=== PATIENT | male | born 1935 | race Caucasian/White ===

== ENCOUNTER 2021-08-22 04:29 | Day surgery (SDC) | payer OTHER ==
[2021-08-21 15:42] VITALS: BMI 26.2
[2021-08-22] MEDS ORDERED: HEPARIN NA (PORCINE) 5,000 UNITS/ML 1ML VIAL ONE (08:48)
[2021-08-22] MEDS ORDERED: ceFAZolin SODIUM 1 GM VIAL IVPB ONE ×2 (10:13→11:00)
[2021-08-22] MEDS ORDERED: LIDOCAINE HCL 1%, 10 MG/ML (20ML VIAL) NR ONE ×2 (10:14→11:06)
[2021-08-22] MEDS ORDERED: DEXMEDETOMIDINE HCL 200 MCG/2 ML IVPB ONE (10:34)
[2021-08-22] MEDS ORDERED: PROPOFOL 20 ML ONE (10:37)
[2021-08-22] MEDS ORDERED: ONDANSETRON 4 MG/2 ML VIAL ONE (10:37)
[2021-08-22] MEDS ORDERED: LIDOCAINE HCL/PF 2% SDV 5ML VIAL ONE (10:37)
[2021-08-22] MEDS ORDERED: ceFAZolin SODIUM 1 GM VIAL ONE (10:37)
[2021-08-22] MEDS ORDERED: MIDAZOLAM HCL 2 MG/2 ML SINGLE DOSE VIAL ONE (10:47)
[2021-08-22] MEDS ORDERED: ACETAMINOPHEN 325 MG TABLET (FP) PO PRN (12:15)
[2021-08-22] MEDS ORDERED: ONDANSETRON 4 MG/2 ML VIAL IVPUSH PRN (12:15)
[2021-08-22] MEDS ORDERED: LACTATED RINGERS SOLUTION 1,000 ML IV SCH (12:15)
[2021-08-22 15:53] VITALS: BP 118/63; PULSE 57
[2021-08-22 16:32] VITALS: TEMP 97
== END 2021-08-22 16:00 | disposition home or self-care (01) ==
LOC: JASU-SURG 04:29
PROVIDERS: ATTEND Surgery Vascular Surgery
PROC: 047L3D1 Dilation of Left Femoral Artery with Intraluminal Device, using Drug-Coated Balloon, Percutaneous Approach (ICD-10-PCS; principal; 2021-08-22 10:30)
DX: L97.929 Non-pressure chronic ulcer of unspecified part of left lower leg with unspecified severity (principal); I70.202 Unspecified atherosclerosis of native arteries of extremities, left leg; I12.9 Hypertensive chronic kidney disease with stage 1 through stage 4 chronic kidney disease, or unspecified chronic kidney disease; E11.22 Type 2 diabetes mellitus with diabetic chronic kidney disease; N18.9 Chronic kidney disease, unspecified
CPT/HCPCS: 37227; C1877; 76000-TC-FY; 93005; 93010; 94760; J1644

== ENCOUNTER 2021-11-06 14:00 | Inpatient (IN) | payer OTHER ==
[2021-11-06 15:31] LABS: BASO % 0.2 % (0-2.0); EOS % 1.6 % (0-4.5); HEMOGLOBIN 11.6 GM/dL (11.7-16.9); LYMPH % 16.7 % (8-40); MCH 29.1 pg (25.7-33.7); MCHC 33.1 g/dl (32.0-35.9); MEAN PLT VOLUME 9.1 fl (7.5-11.1); MONO % 9.5 % (3.8-10.2); PLATELET COUNT 179 10^3/uL (134-434); RBC 3.98 M/mm3 (4.00-5.60); RDW 13.4 % (11.9-15.9); WHITE BLOOD COUNT 11.6 K/mm3 (4.0-10.0)
[2021-11-06 15:38] LABS: INR 1.23 (0.83-1.09); PROTHROMBIN TIME (PATIENT) 13.8 SEC (9.7-13.0)
[2021-11-06 15:40] LABS: ACTIVATED PTT 29.4 SECONDS (25.2-36.5)
[2021-11-06 16:40] LABS: BLOOD UREA NITROGEN 40.8 mg/dL (7-18); CALCIUM 9.2 mg/dL (8.5-10.1)
[2021-11-06 16:45] LABS: BILIRUBIN,TOTAL 0.6 mg/dL (0.2-1); TOT PROT 7.3 g/dl (6.4-8.2)
[2021-11-06] MEDS ORDERED: PIPERACILLIN/TAZOB 3.375 GM 3.375 GM in DEXTROSE 5%-WATER - 50 ML IVPB ONE (17:18)
[2021-11-06] MEDS ORDERED: PIPERACILLIN/TAZOB 2.25 GM 2.25 GM in DEXTROSE 5%-WATER - 50 ML IVPB ONE (17:20)
[2021-11-06] MEDS ORDERED: QUEtiapine FUMARATE 50 MG TABLET PO ONE (18:04)
[2021-11-06] MEDS ORDERED: PIPERACILLIN/TAZOB 2.25 GM 2.25 GM/50 ML BAG IVPB ONE (18:09)
[2021-11-06] MEDS ORDERED: QUEtiapine FUMARATE 25 MG TABLET ONE ×2 (18:09→18:18)
[2021-11-06] MEDS ORDERED: HALOPERIDOL LACTATE 5 MG/ML IM ONE ×2 (18:35→19:03)
[2021-11-06] MEDS ORDERED: HALOPERIDOL LACTATE 5 MG/ML ONE ×2 (18:38→19:06)
[2021-11-06] MEDS ORDERED: LORazepam 2 MG/ML SDV VIAL IM ONE (19:03)
[2021-11-06] MEDS ORDERED: LORazepam 2 MG/ML SDV VIAL ONE (19:07)
[2021-11-06] MEDS ORDERED: FUROSEMIDE 40 MG TABLET (FP) ONE (20:35)
[2021-11-06] MEDS ORDERED: CLOPIDOGREL BISULFATE 75 MG TABLET (FP) ONE (20:35)
[2021-11-06] MEDS ORDERED: HEPARIN NA (PORCINE) 5,000 UNITS/ML 1ML VIAL ONE (20:36)
[2021-11-06] MEDS: FUROSEMIDE 40 MG TABLET (FP) PO SCH (20:45)
[2021-11-06] MEDS: HEPARIN NA (PORCINE) 5,000 UNITS/ML 1ML VIAL SQ SCH (20:45)
[2021-11-06] MEDS: CLOPIDOGREL BISULFATE 75 MG TABLET (FP) PO SCH (20:46)
[2021-11-06] MEDS: SODIUM CHLORIDE 1,000 ML IV SCH (22:13)
[2021-11-06] MEDS ORDERED: FUROSEMIDE 40 MG/4 ML INJECTABLE VIAL IVPUSH ONE (22:56)
[2021-11-06] MEDS ORDERED: METOPROLOL TARTRATE 5 MG/5 ML VIAL IVPUSH ONE (22:57)
[2021-11-06] MEDS ORDERED: METOPROLOL TARTRATE 5 MG/5 ML VIAL ONE (23:08)
[2021-11-06] MEDS ORDERED: FUROSEMIDE 40 MG/4 ML INJECTABLE VIAL ONE (23:08)
[2021-11-06] MEDS: CARVEDILOL 25 MG TABLET (FP) PO SCH (23:09)
[2021-11-06] MEDS: amLODIPine BESYLATE 5 MG TABLET (FP) PO SCH (23:09)
[2021-11-07 02:17] VITALS: BMI 23.4
[2021-11-07] MEDS ORDERED: PIPERACILLIN/TAZOBACTAM 2.25 GM VIAL IVPB ONE ×3 (03:03→17:38)
[2021-11-07] MEDS ORDERED: DEXTROSE 5%-WATER - 50 ML IVPB ONE ×3 (03:04→17:38)
[2021-11-07] MEDS: PIPERACILLIN/TAZOB 2.25 GM 2.25 GM in DEXTROSE 5%-WATER - 50 ML IVPB SCH ×5 (03:41→18:04)
[2021-11-07] MEDS: HEPARIN NA (PORCINE) 5,000 UNITS/ML 1ML VIAL SQ SCH ×3 (06:04→21:30)
[2021-11-07 08:58] LABS: BASO % 0.2 % (0-2.0); EOS % 1.8 % (0-4.5); HEMATOCRIT 33.8 % (35.4-49); HEMOGLOBIN 11.3 GM/dL (11.7-16.9); LYMPH % 18.5 % (8-40); MCH 29.5 pg (25.7-33.7); MCHC 33.5 g/dl (32.0-35.9); MEAN PLT VOLUME 9.6 fl (7.5-11.1); MONO % 7.8 % (3.8-10.2); NEUT % 71.7 % (42.8-82.8); PLATELET COUNT 187 10^3/uL (134-434); RBC 3.84 M/mm3 (4.00-5.60); RDW 13.5 % (11.9-15.9); WHITE BLOOD COUNT 11.5 K/mm3 (4.0-10.0)
[2021-11-07 09:13] LABS: CALCIUM 9.3 mg/dL (8.5-10.1)
[2021-11-07 09:14] LABS: ALBUMIN 2.7 g/dl (3.4-5.0); BLOOD UREA NITROGEN 37.6 mg/dL (7-18); MAGNESIUM 2.4 mg/dL (1.8-2.4)
[2021-11-07 09:17] LABS: CREATININE 1.8 mg/dL (0.55-1.3); PHOSPHOROUS 2.9 mg/dL (2.5-4.9)
[2021-11-07 09:18] LABS: BILIRUBIN,TOTAL 0.8 mg/dL (0.2-1); TOT PROT 6.6 g/dl (6.4-8.2)
[2021-11-07] MEDS: CLOPIDOGREL BISULFATE 75 MG TABLET (FP) PO SCH (10:58)
[2021-11-07] MEDS: CARVEDILOL 25 MG TABLET (FP) PO SCH ×2 (10:58→21:30)
[2021-11-07] MEDS: FUROSEMIDE 40 MG TABLET (FP) PO SCH (10:58)
[2021-11-07] MEDS: amLODIPine BESYLATE 5 MG TABLET (FP) PO SCH (21:30)
[2021-11-07] MEDS: SODIUM CHLORIDE 1,000 ML IV SCH (21:30)
[2021-11-08] MEDS: SODIUM CHLORIDE 1,000 ML IV SCH ×2 (00:02→14:20)
[2021-11-08] MEDS ORDERED: DEXTROSE 5%-WATER - 50 ML IVPB ONE ×3 (01:12→17:45)
[2021-11-08] MEDS ORDERED: PIPERACILLIN/TAZOBACTAM 2.25 GM VIAL IVPB ONE ×3 (01:12→17:45)
[2021-11-08] MEDS: PIPERACILLIN/TAZOB 2.25 GM 2.25 GM in DEXTROSE 5%-WATER - 50 ML IVPB SCH ×3 (01:16→18:06)
[2021-11-08] MEDS: HEPARIN NA (PORCINE) 5,000 UNITS/ML 1ML VIAL SQ SCH ×3 (05:28→21:14)
[2021-11-08 08:49] LABS: BASO % 0.6 % (0-2.0); EOS % 3.1 % (0-4.5); HEMATOCRIT 31.6 % (35.4-49); HEMOGLOBIN 10.7 GM/dL (11.7-16.9); MCH 29.7 pg (25.7-33.7); MCHC 33.9 g/dl (32.0-35.9); MEAN CELL VOLUME 87.7 fl (80-96); MEAN PLT VOLUME 9.2 fl (7.5-11.1); MONO % 8.3 % (3.8-10.2); PLATELET COUNT 192 10^3/uL (134-434); RBC 3.61 M/mm3 (4.00-5.60); RDW 13.7 % (11.9-15.9); WHITE BLOOD COUNT 9.8 K/mm3 (4.0-10.0)
[2021-11-08 09:09] LABS: CALCIUM 8.8 mg/dL (8.5-10.1)
[2021-11-08 09:10] LABS: ALBUMIN 2.3 g/dl (3.4-5.0); BLOOD UREA NITROGEN 34.1 mg/dL (7-18); MAGNESIUM 2.1 mg/dL (1.8-2.4)
[2021-11-08 09:13] LABS: CREATININE 1.7 mg/dL (0.55-1.3)
[2021-11-08 09:14] LABS: TOT PROT 6.2 g/dl (6.4-8.2)
[2021-11-08 09:15] LABS: BILIRUBIN,TOTAL 0.8 mg/dL (0.2-1)
[2021-11-08] MEDS: CLOPIDOGREL BISULFATE 75 MG TABLET (FP) PO SCH (11:05)
[2021-11-08] MEDS: CARVEDILOL 25 MG TABLET (FP) PO SCH ×3 (11:05→21:21)
[2021-11-08] MEDS: FUROSEMIDE 40 MG TABLET (FP) PO SCH (11:05)
[2021-11-08] MEDS: amLODIPine BESYLATE 5 MG TABLET (FP) PO SCH ×2 (21:14→21:21)
[2021-11-09] MEDS ORDERED: DEXTROSE 5%-WATER - 50 ML IVPB ONE ×3 (01:06→17:09)
[2021-11-09] MEDS ORDERED: PIPERACILLIN/TAZOBACTAM 2.25 GM VIAL IVPB ONE ×3 (01:06→17:09)
[2021-11-09] MEDS: PIPERACILLIN/TAZOB 2.25 GM 2.25 GM in DEXTROSE 5%-WATER - 50 ML IVPB SCH ×3 (02:25→17:14)
[2021-11-09] MEDS: HEPARIN NA (PORCINE) 5,000 UNITS/ML 1ML VIAL SQ SCH ×3 (05:05→21:32)
[2021-11-09 08:53] LABS: BASO % 0.5 % (0-2.0); EOS % 1.1 % (0-4.5); HEMATOCRIT 34.1 % (35.4-49); HEMOGLOBIN 11.5 GM/dL (11.7-16.9); LYMPH % 18.4 % (8-40); MCH 29.9 pg (25.7-33.7); MCHC 33.8 g/dl (32.0-35.9); MEAN CELL VOLUME 88.4 fl (80-96); MONO % 7.7 % (3.8-10.2); NEUT % 72.3 % (42.8-82.8); PLATELET COUNT 215 10^3/uL (134-434); RBC 3.86 M/mm3 (4.00-5.60); RDW 13.5 % (11.9-15.9); WHITE BLOOD COUNT 10.2 K/mm3 (4.0-10.0)
[2021-11-09 09:20] LABS: ALBUMIN 2.3 g/dl (3.4-5.0); BLOOD UREA NITROGEN 32.4 mg/dL (7-18); CALCIUM 8.6 mg/dL (8.5-10.1)
[2021-11-09 09:23] LABS: CREATININE 1.8 mg/dL (0.55-1.3)
[2021-11-09 09:24] LABS: BILIRUBIN,TOTAL 0.8 mg/dL (0.2-1)
[2021-11-09 09:25] LABS: TOT PROT 6.3 g/dl (6.4-8.2)
[2021-11-09] MEDS: FUROSEMIDE 40 MG TABLET (FP) PO SCH (11:40)
[2021-11-09] MEDS: CARVEDILOL 25 MG TABLET (FP) PO SCH ×2 (11:40→21:35)
[2021-11-09] MEDS: CLOPIDOGREL BISULFATE 75 MG TABLET (FP) PO SCH (11:41)
[2021-11-09] MEDS: amLODIPine BESYLATE 5 MG TABLET (FP) PO SCH (21:35)
[2021-11-10] MEDS ORDERED: PIPERACILLIN/TAZOBACTAM 2.25 GM VIAL IVPB ONE ×3 (01:22→18:51)
[2021-11-10] MEDS ORDERED: DEXTROSE 5%-WATER - 50 ML IVPB ONE ×3 (01:22→18:51)
[2021-11-10] MEDS: PIPERACILLIN/TAZOB 2.25 GM 2.25 GM in DEXTROSE 5%-WATER - 50 ML IVPB SCH ×3 (01:26→18:57)
[2021-11-10] MEDS: HEPARIN NA (PORCINE) 5,000 UNITS/ML 1ML VIAL SQ SCH ×3 (05:44→23:29)
[2021-11-10 10:25] LABS: BASO % 0.5 % (0-2.0); EOS % 0.4 % (0-4.5); HEMOGLOBIN 11.3 GM/dL (11.7-16.9); LYMPH % 15.3 % (8-40); MCHC 34.3 g/dl (32.0-35.9); MEAN CELL VOLUME 87.3 fl (80-96); MEAN PLT VOLUME 8.9 fl (7.5-11.1); MONO % 8.3 % (3.8-10.2); NEUT % 75.5 % (42.8-82.8); PLATELET COUNT 216 10^3/uL (134-434); RBC 3.77 M/mm3 (4.00-5.60); RDW 13.7 % (11.9-15.9); WHITE BLOOD COUNT 10.9 K/mm3 (4.0-10.0)
[2021-11-10 10:49] LABS: CALCIUM 9.2 mg/dL (8.5-10.1)
[2021-11-10 10:50] LABS: ALBUMIN 2.5 g/dl (3.4-5.0); BLOOD UREA NITROGEN 27.8 mg/dL (7-18); MAGNESIUM 2.3 mg/dL (1.8-2.4)
[2021-11-10 10:53] LABS: CREATININE 1.5 mg/dL (0.55-1.3)
[2021-11-10 10:55] LABS: TOT PROT 6.6 g/dl (6.4-8.2)
[2021-11-10] MEDS: CARVEDILOL 25 MG TABLET (FP) PO SCH ×2 (11:11→23:29)
[2021-11-10] MEDS: FUROSEMIDE 40 MG TABLET (FP) PO SCH (11:11)
[2021-11-10] MEDS: CLOPIDOGREL BISULFATE 75 MG TABLET (FP) PO SCH (11:11)
[2021-11-10] MEDS: amLODIPine BESYLATE 5 MG TABLET (FP) PO SCH (23:29)
[2021-11-11] MEDS ORDERED: PIPERACILLIN/TAZOBACTAM 2.25 GM VIAL IVPB ONE ×3 (01:58→18:32)
[2021-11-11] MEDS ORDERED: DEXTROSE 5%-WATER - 50 ML IVPB ONE ×3 (01:59→18:33)
[2021-11-11] MEDS: PIPERACILLIN/TAZOB 2.25 GM 2.25 GM in DEXTROSE 5%-WATER - 50 ML IVPB SCH ×3 (02:30→18:51)
[2021-11-11] MEDS: HEPARIN NA (PORCINE) 5,000 UNITS/ML 1ML VIAL SQ SCH ×3 (06:15→22:11)
[2021-11-11] MEDS ORDERED: PT OWN MED DRAWER 7, Y5N ONE (10:53)
[2021-11-11] MEDS: FUROSEMIDE 40 MG TABLET (FP) PO SCH (11:04)
[2021-11-11] MEDS: CARVEDILOL 25 MG TABLET (FP) PO SCH ×2 (11:05→22:11)
[2021-11-11] MEDS: CLOPIDOGREL BISULFATE 75 MG TABLET (FP) PO SCH (11:05)
[2021-11-11] MEDS ORDERED: HALOPERIDOL LACTATE 5 MG/ML IM ONE (14:24)
[2021-11-11] MEDS: amLODIPine BESYLATE 5 MG TABLET (FP) PO SCH (22:11)
[2021-11-12] MEDS ORDERED: DEXTROSE 5%-WATER - 50 ML IVPB ONE ×3 (00:46→17:27)
[2021-11-12] MEDS ORDERED: PIPERACILLIN/TAZOBACTAM 2.25 GM VIAL IVPB ONE ×3 (00:46→17:26)
[2021-11-12] MEDS: PIPERACILLIN/TAZOB 2.25 GM 2.25 GM in DEXTROSE 5%-WATER - 50 ML IVPB SCH ×3 (00:59→18:03)
[2021-11-12] MEDS: HEPARIN NA (PORCINE) 5,000 UNITS/ML 1ML VIAL SQ SCH ×3 (05:24→21:22)
[2021-11-12 08:51] LABS: INR 1.2 (0.83-1.09); PROTHROMBIN TIME (PATIENT) 13.5 SEC (9.7-13.0)
[2021-11-12 08:54] LABS: ACTIVATED PTT 28.6 SECONDS (25.2-36.5)
[2021-11-12 08:58] LABS: CALCIUM 9.2 mg/dL (8.5-10.1)
[2021-11-12 08:59] LABS: BLOOD UREA NITROGEN 26.3 mg/dL (7-18)
[2021-11-12 09:02] LABS: CREATININE 1.4 mg/dL (0.55-1.3)
[2021-11-12 09:49] LABS: BASO % 0.4 % (0-2.0); EOS % 5.5 % (0-4.5); HEMATOCRIT 34.7 % (35.4-49); HEMOGLOBIN 11.5 GM/dL (11.7-16.9); LYMPH % 20.2 % (8-40); MCH 29.8 pg (25.7-33.7); MCHC 33.3 g/dl (32.0-35.9); MEAN CELL VOLUME 89.5 fl (80-96); MEAN PLT VOLUME 9.1 fl (7.5-11.1); MONO % 8.7 % (3.8-10.2); NEUT % 65.2 % (42.8-82.8); PLATELET COUNT 251 10^3/uL (134-434); RBC 3.88 M/mm3 (4.00-5.60); RDW 13.5 % (11.9-15.9); WHITE BLOOD COUNT 7.9 K/mm3 (4.0-10.0)
[2021-11-12] MEDS: FUROSEMIDE 40 MG TABLET (FP) PO SCH (10:50)
[2021-11-12] MEDS: CLOPIDOGREL BISULFATE 75 MG TABLET (FP) PO SCH (10:50)
[2021-11-12] MEDS: CARVEDILOL 25 MG TABLET (FP) PO SCH ×2 (10:50→21:22)
[2021-11-12] MEDS: amLODIPine BESYLATE 5 MG TABLET (FP) PO SCH (21:22)
[2021-11-13] MEDS ORDERED: DEXTROSE 5%-WATER - 50 ML IVPB ONE ×2 (00:50→10:54)
[2021-11-13] MEDS ORDERED: PIPERACILLIN/TAZOBACTAM 2.25 GM VIAL IVPB ONE ×2 (00:50→10:54)
[2021-11-13] MEDS: PIPERACILLIN/TAZOB 2.25 GM 2.25 GM in DEXTROSE 5%-WATER - 50 ML IVPB SCH ×2 (01:02→10:58)
[2021-11-13] MEDS: HEPARIN NA (PORCINE) 5,000 UNITS/ML 1ML VIAL SQ SCH (05:35)
[2021-11-13 08:29] LABS: BASO % 0.5 % (0-2.0); EOS % 4.5 % (0-4.5); HEMATOCRIT 34.3 % (35.4-49); HEMOGLOBIN 11.5 GM/dL (11.7-16.9); MCH 29.2 pg (25.7-33.7); MCHC 33.4 g/dl (32.0-35.9); MEAN CELL VOLUME 87.3 fl (80-96); MEAN PLT VOLUME 8.7 fl (7.5-11.1); MONO % 8.7 % (3.8-10.2); NEUT % 61.3 % (42.8-82.8); PLATELET COUNT 284 10^3/uL (134-434); RBC 3.92 M/mm3 (4.00-5.60); RDW 13.6 % (11.9-15.9); WHITE BLOOD COUNT 6.7 K/mm3 (4.0-10.0)
[2021-11-13] MEDS ORDERED: INSULIN (LEVEMIR) 100 UNITS/ML UNITS SQ ONE (08:32)
[2021-11-13 08:48] LABS: CALCIUM 9.4 mg/dL (8.5-10.1)
[2021-11-13 08:49] LABS: ALBUMIN 2.3 g/dl (3.4-5.0); MAGNESIUM 2.4 mg/dL (1.8-2.4)
[2021-11-13 08:52] LABS: CREATININE 1.5 mg/dL (0.55-1.3)
[2021-11-13 08:53] LABS: BILIRUBIN,TOTAL 0.5 mg/dL (0.2-1); TOT PROT 6.4 g/dl (6.4-8.2)
[2021-11-13] MEDS: FUROSEMIDE 40 MG TABLET (FP) PO SCH (10:58)
[2021-11-13] MEDS: CLOPIDOGREL BISULFATE 75 MG TABLET (FP) PO SCH (10:58)
[2021-11-13] MEDS: CARVEDILOL 25 MG TABLET (FP) PO SCH (10:58)
[2021-11-13] MEDS ORDERED: AMOX TR/POT CLAV 875MG/125MG TABLETS (FP) PO SCH (12:00)
[2021-11-13 15:04] VITALS: BP 117/62; PULSE 58; TEMP 97.9
== END 2021-11-13 16:11 | disposition home or self-care (01) | DRG 603 ==
LOC: JER 14:00 → JERBED 18:29 → J8W 23:11
PROVIDERS: ATTEND Nurse Practitioner Family
DX: L03.115 Cellulitis of right lower limb (principal); E11.52 Type 2 diabetes mellitus with diabetic peripheral angiopathy with gangrene; I96 Gangrene, not elsewhere classified; F03.91 Unspecified dementia, unspecified severity, with behavioral disturbance; N17.9 Acute kidney failure, unspecified; I69.320 Aphasia following cerebral infarction; I10 Essential (primary) hypertension; E78.5 Hyperlipidemia, unspecified; D72.829 Elevated white blood cell count, unspecified
CPT/HCPCS: 36415; 71045-TC-FY; 73660-TC-FY; 73660-TC-LT-FY; 80048; 80053; 82962; 83605; 83735; 83880; 84100; 84484; 85025; 85610; 85730; 86140; 86850; 86900; 86901; 87040; 93005; 93010; 93971-TC; 97116-GP; 97161-GP; 99285-25; C9803; G0463-25; J1644; U0003; U0005

== ENCOUNTER 2021-11-21 22:30 | Inpatient (IN) | payer OTHER ==
[2021-11-21] MEDS ORDERED: SODIUM CHLORIDE 2,449 ML IV ONE (23:11)
[2021-11-22 00:44] LABS: BASO % 0.7 % (0-2.0); EOS % 2.6 % (0-4.5); HEMATOCRIT 33.7 % (35.4-49); HEMOGLOBIN 11.3 GM/dL (11.7-16.9); LYMPH % 21.4 % (8-40); MCHC 33.6 g/dl (32.0-35.9); MEAN CELL VOLUME 86.2 fl (80-96); MEAN PLT VOLUME 8.5 fl (7.5-11.1); MONO % 5.9 % (3.8-10.2); NEUT % 69.4 % (42.8-82.8); PLATELET COUNT 371 10^3/uL (134-434); RBC 3.91 M/mm3 (4.00-5.60); RDW 13.8 % (11.9-15.9); WHITE BLOOD COUNT 8.4 K/mm3 (4.0-10.0)
[2021-11-22 00:48] LABS: INR 1.23 (0.83-1.09); PROTHROMBIN TIME (PATIENT) 14.4 SEC (9.7-13.0)
[2021-11-22 00:51] LABS: ACTIVATED PTT 29.8 SECONDS (25.2-36.5)
[2021-11-22 00:53] LABS: VENOUS BASE EXCESS 3.6 mmol/L (-2-2); VENOUS O2 SATURATION 25.4 % (70-80); VENOUS PCO2 57.5 mmHg (38-52); VENOUS PH 7.345 (7.310-7.410)
[2021-11-22 01:01] LABS: CHLORIDE 100 mmol/L (98-107); SODIUM 136 mmol/L (136-145)
[2021-11-22 01:02] LABS: ALBUMIN 2.5 g/dl (3.4-5.0); CALCIUM 9.6 mg/dL (8.5-10.1)
[2021-11-22 01:04] LABS: ANION GAP 9 MMOL/L (8-16); BLOOD UREA NITROGEN 37.6 mg/dL (7-18); CO2 26 mmol/L (21-32); GLUCOSE,RANDOM 171 mg/dL (74-106)
[2021-11-22 01:06] LABS: CREATININE 1.6 mg/dL (0.55-1.3)
[2021-11-22 01:07] LABS: BILIRUBIN,TOTAL 0.4 mg/dL (0.2-1); SGOT/AST 33 U/L (15-37); SGPT/ALT 52 U/L (13-61); TOT PROT 7.2 g/dl (6.4-8.2)
[2021-11-22 01:09] LABS: ALK PHOS 122 U/L (45-117)
[2021-11-22 01:39] LABS: URINE APPEARANCE CLEAR; URINE BILIRUBIN NEGATIVE (NEGATIVE); URINE COLOR YELLOW; URINE GLUCOSE (UA) NEGATIVE (NEGATIVE); URINE KETONE NEGATIVE (NEGATIVE); URINE LEUK ESTERASE NEGATIVE (NEGATIVE); URINE NITRITE NEGATIVE (NEGATIVE); URINE PROTEIN NEGATIVE (NEGATIVE); URINE UROBILINOGEN 0.2 mg/dL (0.2-1.0)
[2021-11-22] MEDS ORDERED: VANCOMYCIN HCL 1,500 MG in DEXTROSE 5%-WATER - 500 ML IVPB ONE (01:45)
[2021-11-22] MEDS ORDERED: PIPERACILLIN/TAZOB 4.5 GM 4.5 GM in DEXTROSE 5%-WATER 100 ML IVPB ONE (01:45)
[2021-11-22] MEDS ORDERED: CLINDAMYCIN 600MG PREMIX IVPB 600 MG/50 ML BAG IVPB ONE (01:46)
[2021-11-22] MEDS ORDERED: PIPERACILLIN/TAZOB 4.5 GM 4.5 GM/100 ML BAG IVPB ONE (02:00)
[2021-11-22] MEDS ORDERED: VANCOMYCIN PREMIX 1.5 GM 1,500 MG/300 ML BAG IVPB ONE (02:15)
[2021-11-22] MEDS ORDERED: HALOPERIDOL LACTATE 5 MG/ML ONE (06:10)
[2021-11-22] MEDS ORDERED: HALOPERIDOL LACTATE 5 MG/ML IM ONE (06:14)
[2021-11-22] MEDS: CARVEDILOL 25 MG TABLET (FP) PO SCH ×2 (09:54→21:45)
[2021-11-22] MEDS: CLOPIDOGREL BISULFATE 75 MG TABLET (FP) PO SCH (09:54)
[2021-11-22] MEDS ORDERED: ACETAMINOPHEN 1000 MG/100 ML BAG IVPB PRN (10:51)
[2021-11-22] MEDS: FUROSEMIDE 40 MG TABLET (FP) PO SCH (11:54)
[2021-11-22] MEDS ORDERED: PT OWN MED DRAWER 7, Y5N ONE ×3 (12:07→16:19)
[2021-11-22] MEDS ORDERED: MEROPENEM 1 GM VIAL (RESTRICTED TO ID) IVPB ONE (17:53)
[2021-11-22] MEDS ORDERED: DEXTROSE 5%-WATER 100 ML IVPB ONE (17:53)
[2021-11-22] MEDS: COLLAGENASE CLOSTRIDIUM HIST. 30 GRAMS TUBE TP SCH (17:58)
[2021-11-22] MEDS: MEROPENEM 1 GM in DEXTROSE 5%-WATER 100 ML IVPB SCH (17:59)
[2021-11-22] MEDS ORDERED: CLINDAMYCIN 600MG PREMIX IVPB 600 MG/50 ML BAG IVPB SCH (18:00)
[2021-11-22] MEDS: amLODIPine BESYLATE 5 MG TABLET (FP) PO SCH (21:43)
[2021-11-22] MEDS: HEPARIN NA (PORCINE) 5,000 UNITS/ML 1ML VIAL SQ SCH (21:44)
[2021-11-23] MEDS ORDERED: HALOPERIDOL 1 MG TABLET PO ONE (01:20)
[2021-11-23] MEDS ORDERED: MEROPENEM 1 GM VIAL (RESTRICTED TO ID) IVPB ONE ×2 (05:15→17:12)
[2021-11-23] MEDS ORDERED: DEXTROSE 5%-WATER 100 ML IVPB ONE ×2 (05:15→17:13)
[2021-11-23] MEDS: MEROPENEM 1 GM in DEXTROSE 5%-WATER 100 ML IVPB SCH ×2 (05:32→18:00)
[2021-11-23] MEDS: FUROSEMIDE 40 MG TABLET (FP) PO SCH (10:01)
[2021-11-23] MEDS: CARVEDILOL 25 MG TABLET (FP) PO SCH ×2 (10:01→21:50)
[2021-11-23] MEDS: CLOPIDOGREL BISULFATE 75 MG TABLET (FP) PO SCH (10:01)
[2021-11-23] MEDS: HEPARIN NA (PORCINE) 5,000 UNITS/ML 1ML VIAL SQ SCH ×2 (10:01→21:50)
[2021-11-23 12:20] LABS: BASO % 1.2 % (0-2.0); EOS % 3.2 % (0-4.5); HEMATOCRIT 33.5 % (35.4-49); LYMPH % 21.5 % (8-40); MCH 28.3 pg (25.7-33.7); MCHC 32.8 g/dl (32.0-35.9); MEAN CELL VOLUME 86.4 fl (80-96); MEAN PLT VOLUME 8.2 fl (7.5-11.1); NEUT % 67.1 % (42.8-82.8); PLATELET COUNT 373 10^3/uL (134-434); RBC 3.88 M/mm3 (4.00-5.60); RDW 13.7 % (11.9-15.9); WHITE BLOOD COUNT 7.8 K/mm3 (4.0-10.0)
[2021-11-23 12:43] LABS: ALBUMIN 2.1 g/dl (3.4-5.0); BLOOD UREA NITROGEN 22.6 mg/dL (7-18); CALCIUM 9.3 mg/dL (8.5-10.1); MAGNESIUM 1.9 mg/dL (1.8-2.4)
[2021-11-23 12:46] LABS: CREATININE 1.3 mg/dL (0.55-1.3)
[2021-11-23 12:48] LABS: BILIRUBIN,TOTAL 0.4 mg/dL (0.2-1); TOT PROT 6.2 g/dl (6.4-8.2)
[2021-11-23] MEDS: COLLAGENASE CLOSTRIDIUM HIST. 30 GRAMS TUBE TP SCH (15:00)
[2021-11-23] MEDS: amLODIPine BESYLATE 5 MG TABLET (FP) PO SCH (21:50)
[2021-11-24] MEDS ORDERED: MEROPENEM 1 GM VIAL (RESTRICTED TO ID) IVPB ONE (04:48)
[2021-11-24] MEDS ORDERED: DEXTROSE 5%-WATER 100 ML IVPB ONE (04:49)
[2021-11-24] MEDS: MEROPENEM 1 GM in DEXTROSE 5%-WATER 100 ML IVPB SCH (04:55)
[2021-11-24] MEDS: CARVEDILOL 25 MG TABLET (FP) PO SCH ×2 (09:19→21:41)
[2021-11-24] MEDS: CLOPIDOGREL BISULFATE 75 MG TABLET (FP) PO SCH (09:19)
[2021-11-24] MEDS: FUROSEMIDE 40 MG TABLET (FP) PO SCH (09:19)
[2021-11-24] MEDS: COLLAGENASE CLOSTRIDIUM HIST. 30 GRAMS TUBE TP SCH (09:20)
[2021-11-24] MEDS: HEPARIN NA (PORCINE) 5,000 UNITS/ML 1ML VIAL SQ SCH ×2 (09:20→21:41)
[2021-11-24 09:22] LABS: BASO % 0.3 % (0-2.0); HEMATOCRIT 35.8 % (35.4-49); HEMOGLOBIN 11.6 GM/dL (11.7-16.9); MCH 27.8 pg (25.7-33.7); MCHC 32.5 g/dl (32.0-35.9); MEAN CELL VOLUME 85.8 fl (80-96); MEAN PLT VOLUME 8.7 fl (7.5-11.1); NEUT % 70.7 % (42.8-82.8); PLATELET COUNT 394 10^3/uL (134-434); RBC 4.18 M/mm3 (4.00-5.60); RDW 13.7 % (11.9-15.9); WHITE BLOOD COUNT 8.5 K/mm3 (4.0-10.0)
[2021-11-24 09:45] LABS: ALBUMIN 2.4 g/dl (3.4-5.0); BLOOD UREA NITROGEN 20.4 mg/dL (7-18); CALCIUM 9.6 mg/dL (8.5-10.1); MAGNESIUM 2.1 mg/dL (1.8-2.4)
[2021-11-24 09:47] LABS: CREATININE 1.2 mg/dL (0.55-1.3)
[2021-11-24 09:50] LABS: BILIRUBIN,TOTAL 0.4 mg/dL (0.2-1); TOT PROT 6.5 g/dl (6.4-8.2)
[2021-11-24] MEDS ORDERED: SODIUM CHLORIDE 100 ML IVPB ONE (16:45)
[2021-11-24] MEDS ORDERED: AMPICILLIN NA/SULBACTAM NA 3 GM VIAL ONE (16:45)
[2021-11-24] MEDS ORDERED: AMPICILLIN NA/SULBACTAM NA 3 GM in SODIUM CHLORIDE 100 ML IVPB SCH (18:00)
[2021-11-24] MEDS: amLODIPine BESYLATE 5 MG TABLET (FP) PO SCH (21:40)
[2021-11-25] MEDS ORDERED: MEROPENEM 1 GM VIAL (RESTRICTED TO ID) IVPB ONE ×3 (00:58→17:22)
[2021-11-25] MEDS: MEROPENEM 1 GM in DEXTROSE 5%-WATER 100 ML IVPB SCH ×3 (01:02→18:12)
[2021-11-25] MEDS ORDERED: DEXTROSE 5%-WATER 100 ML IVPB ONE ×2 (09:25→17:22)
[2021-11-25] MEDS: CLOPIDOGREL BISULFATE 75 MG TABLET (FP) PO SCH (09:29)
[2021-11-25] MEDS: COLLAGENASE CLOSTRIDIUM HIST. 30 GRAMS TUBE TP SCH (09:29)
[2021-11-25] MEDS: FUROSEMIDE 40 MG TABLET (FP) PO SCH (09:29)
[2021-11-25] MEDS: CARVEDILOL 25 MG TABLET (FP) PO SCH ×2 (09:29→22:34)
[2021-11-25] MEDS: HEPARIN NA (PORCINE) 5,000 UNITS/ML 1ML VIAL SQ SCH ×2 (09:29→22:34)
[2021-11-25 09:51] LABS: BASO % 0.7 % (0-2.0); EOS % 1.9 % (0-4.5); HEMATOCRIT 35.8 % (35.4-49); HEMOGLOBIN 11.8 GM/dL (11.7-16.9); LYMPH % 27.7 % (8-40); MCH 28.3 pg (25.7-33.7); MCHC 32.9 g/dl (32.0-35.9); MEAN CELL VOLUME 86.1 fl (80-96); MEAN PLT VOLUME 8.4 fl (7.5-11.1); MONO % 8.8 % (3.8-10.2); NEUT % 60.9 % (42.8-82.8); PLATELET COUNT 367 10^3/uL (134-434); RBC 4.16 M/mm3 (4.00-5.60); RDW 13.8 % (11.9-15.9); WHITE BLOOD COUNT 7.6 K/mm3 (4.0-10.0)
[2021-11-25 10:10] LABS: ALBUMIN 2.3 g/dl (3.4-5.0); BLOOD UREA NITROGEN 24.9 mg/dL (7-18); CALCIUM 9.6 mg/dL (8.5-10.1); MAGNESIUM 2.1 mg/dL (1.8-2.4)
[2021-11-25 10:13] LABS: CREATININE 1.3 mg/dL (0.55-1.3)
[2021-11-25 10:15] LABS: BILIRUBIN,TOTAL 0.6 mg/dL (0.2-1); TOT PROT 6.3 g/dl (6.4-8.2)
[2021-11-25 22:21] VITALS: BMI 24.9
[2021-11-25] MEDS: amLODIPine BESYLATE 5 MG TABLET (FP) PO SCH (22:34)
[2021-11-26] MEDS ORDERED: MEROPENEM 1 GM VIAL (RESTRICTED TO ID) IVPB ONE (01:49)
[2021-11-26] MEDS ORDERED: DEXTROSE 5%-WATER 100 ML IVPB ONE (01:49)
[2021-11-26] MEDS: MEROPENEM 1 GM in DEXTROSE 5%-WATER 100 ML IVPB SCH ×2 (02:02→11:15)
[2021-11-26] MEDS ORDERED: PT OWN MED DRAWER 7, Y5N ONE (10:23)
[2021-11-26] MEDS: CLOPIDOGREL BISULFATE 75 MG TABLET (FP) PO SCH (10:25)
[2021-11-26] MEDS: MULTIVITAMINS (DAILY MVI) TABLET (FP) PO SCH (10:25)
[2021-11-26] MEDS: FUROSEMIDE 40 MG TABLET (FP) PO SCH (10:25)
[2021-11-26] MEDS: ZINC SULFATE 220 MG CAPSULE (FP) PO SCH (10:25)
[2021-11-26] MEDS: ASCORBIC ACID 250 MG TABLET (FP) PO SCH (10:25)
[2021-11-26] MEDS: HEPARIN NA (PORCINE) 5,000 UNITS/ML 1ML VIAL SQ SCH ×2 (10:25→21:00)
[2021-11-26] MEDS: CARVEDILOL 25 MG TABLET (FP) PO SCH ×2 (10:25→21:00)
[2021-11-26 11:29] LABS: BASO % 0.4 % (0-2.0); EOS % 3.1 % (0-4.5); HEMATOCRIT 37.4 % (35.4-49); HEMOGLOBIN 12.2 GM/dL (11.7-16.9); LYMPH % 27.2 % (8-40); MCH 28.1 pg (25.7-33.7); MCHC 32.6 g/dl (32.0-35.9); MEAN CELL VOLUME 86.2 fl (80-96); MEAN PLT VOLUME 8.5 fl (7.5-11.1); MONO % 8.3 % (3.8-10.2); PLATELET COUNT 377 10^3/uL (134-434); RBC 4.34 M/mm3 (4.00-5.60); RDW 14.1 % (11.9-15.9); WHITE BLOOD COUNT 8.3 K/mm3 (4.0-10.0)
[2021-11-26 11:57] LABS: CALCIUM 9.6 mg/dL (8.5-10.1)
[2021-11-26 11:58] LABS: ALBUMIN 2.2 g/dl (3.4-5.0); BLOOD UREA NITROGEN 29.2 mg/dL (7-18)
[2021-11-26 12:01] LABS: CREATININE 1.4 mg/dL (0.55-1.3)
[2021-11-26 12:03] LABS: BILIRUBIN,TOTAL 0.4 mg/dL (0.2-1); TOT PROT 6.6 g/dl (6.4-8.2)
[2021-11-26] MEDS: COLLAGENASE CLOSTRIDIUM HIST. 30 GRAMS TUBE TP SCH (16:29)
[2021-11-26] MEDS: AMOX TR/POT CLAV 875MG/125MG TABLETS (FP) PO SCH (16:29)
[2021-11-26] MEDS: amLODIPine BESYLATE 5 MG TABLET (FP) PO SCH (21:00)
[2021-11-27] MEDS ORDERED: PT OWN MED DRAWER 7, Y5N ONE (09:23)
[2021-11-27] MEDS: ZINC SULFATE 220 MG CAPSULE (FP) PO SCH (09:32)
[2021-11-27] MEDS: MULTIVITAMINS (DAILY MVI) TABLET (FP) PO SCH (09:32)
[2021-11-27] MEDS: COLLAGENASE CLOSTRIDIUM HIST. 30 GRAMS TUBE TP SCH (09:32)
[2021-11-27] MEDS: HEPARIN NA (PORCINE) 5,000 UNITS/ML 1ML VIAL SQ SCH ×3 (09:32→21:02)
[2021-11-27] MEDS: FUROSEMIDE 40 MG TABLET (FP) PO SCH (09:32)
[2021-11-27] MEDS: AMOX TR/POT CLAV 875MG/125MG TABLETS (FP) PO SCH ×2 (09:32→18:23)
[2021-11-27] MEDS: ASCORBIC ACID 250 MG TABLET (FP) PO SCH (09:32)
[2021-11-27] MEDS: CARVEDILOL 25 MG TABLET (FP) PO SCH ×3 (09:32→21:02)
[2021-11-27] MEDS: CLOPIDOGREL BISULFATE 75 MG TABLET (FP) PO SCH (09:32)
[2021-11-27] MEDS ORDERED: levoFLOXacin 750 MG TABLET PO SCH (10:00)
[2021-11-27] MEDS ORDERED: AMOX TR/POT CLAV 500MG/125MG TABLETS (FP) PO SCH (17:30)
[2021-11-27] MEDS: amLODIPine BESYLATE 5 MG TABLET (FP) PO SCH ×2 (20:30→21:02)
[2021-11-28] MEDS ORDERED: PT OWN MED DRAWER 7, Y5N ONE (09:36)
[2021-11-28] MEDS: AMOX TR/POT CLAV 875MG/125MG TABLETS (FP) PO SCH (10:05)
[2021-11-28] MEDS: ZINC SULFATE 220 MG CAPSULE (FP) PO SCH (10:05)
[2021-11-28] MEDS: CLOPIDOGREL BISULFATE 75 MG TABLET (FP) PO SCH (10:05)
[2021-11-28] MEDS: CARVEDILOL 25 MG TABLET (FP) PO SCH (10:06)
[2021-11-28] MEDS: MULTIVITAMINS (DAILY MVI) TABLET (FP) PO SCH (10:06)
[2021-11-28] MEDS: ASCORBIC ACID 250 MG TABLET (FP) PO SCH (10:06)
[2021-11-28] MEDS: FUROSEMIDE 40 MG TABLET (FP) PO SCH (10:06)
[2021-11-28] MEDS: HEPARIN NA (PORCINE) 5,000 UNITS/ML 1ML VIAL SQ SCH (10:06)
[2021-11-28] MEDS: COLLAGENASE CLOSTRIDIUM HIST. 30 GRAMS TUBE TP SCH (10:32)
[2021-11-28 10:35] VITALS: BP 121/72; PULSE 73; TEMP 98.3
[2021-11-28] MEDS ORDERED: ACETAMINOPHEN 325 MG TABLET (FP) PO PRN (12:45)
== END 2021-11-28 17:31 | DRG 602 ==
LOC: JER 22:30 → JERBED 23:14 → INTOOBSV 23:14 → UNDOADMOB 23:14 → JERBED 11-22 06:20 → J6S 11-22 06:20 → JERBED 11-22 07:26 → OBSVTOIN 11-23 12:22 → J6S 11-26 20:02
PROVIDERS: ADMIT Internal Medicine; ATTEND Nurse Practitioner Family
DX: L03.115 Cellulitis of right lower limb (principal); U07.1 COVID-19; L97.929 Non-pressure chronic ulcer of unspecified part of left lower leg with unspecified severity; E78.5 Hyperlipidemia, unspecified; I73.9 Peripheral vascular disease, unspecified; I69.320 Aphasia following cerebral infarction; R26.2 Difficulty in walking, not elsewhere classified; N18.31 Chronic kidney disease, stage 3a; I12.9 Hypertensive chronic kidney disease with stage 1 through stage 4 chronic kidney disease, or unspecified chronic kidney disease; I25.10 Atherosclerotic heart disease of native coronary artery without angina pectoris
CPT/HCPCS: 36415; 71045-TC-FY; 73590-TC-RT-FY; 73610-TC-RT-FY; 73630-TC-RT-FY; 73700-TC-RT; 80053; 81003; 82550; 82553; 82728; 82803; 83605; 83615; 83735; 84484; 85025; 85379; 85610; 85730; 86140; 87040; 87070; 87086; 87186; 87205; 93005; 93010; 93971-TC; 97116-GP; 97162-GP; 99285-25; C9803; G0378; J1644; U0003; U0005